=== PATIENT | female | born 1985 | race Caucasian/White ===

== ENCOUNTER 2017-01-24 21:19 | Emergency (ER) | payer BC ==
[2017-01-24 21:41] VITALS: BP 143/85
--- NOTE | 2017-01-24 21:41 | ED Physician Documentation ---
Skin Rash - HISTORIAN Historian: patient - HPI Chief Complaint: Allergic Reaction Onset: days ago (today) Timing: worse Duration: persistent since (this AM) Location: facial, RUE, LUE Quality: itchy Identified Cause?: Yes (poison mike) Where: home Context: Other Exposure: poison mike Further Comments: yes - ROS CONST: no problems - PAST HX Past History: none Other History: none Surgeries/Procedures: No Immunizations: referred to PCP Allergies/Adverse Reactions: Allergies Allergy/AdvReac Type Severity Reaction Status Date / Time No Known Allergies Allergy Verified 01/24/17 21:41 Home Medications: Ambulatory Orders Medication Instructions Recorded Desogestrel-Ethinyl Estradiol 1 each PO DAILY u2 07/09/14 [Reclipsen 28 Day Tablet] - SOCIAL HX Smoking History: non-smoker Alcohol Use: occasionally Drug Use: none - FAMILY HX Family History: none - REVIEWED ASSESSMENTS Nursing Assessment Reviewed: Yes Vitals Reviewed: Yes Skin Rash Physical Exam - EXAM General Appearance: alert, mild distress Skin: warm,dry, erythema (generalized to the face, scattered lesion to the forearm bilat) Location: face, extremities (upper) Character: vesicular, erythematous Symptoms: warmth, tenderness, inflammation Respiratory: no resp distress, chest non-tender, breath sounds normal. No: wheezes, rales, rhonchi CVS: reg. rate & rhythm, heart sounds nml Neuro/Psych: mood/affect nml Discharge Clincal Impression: Contact dermatitis and eczema due to plant Referrals: Zenaida Salazar MD [Primary Care Provider] - 2 Days Additional Instructions: May continue to use calamine lotion. Try some Benadryl to help with the itching , this may cause drowsiness. This will take 10-14 days to resolve. Home Medications: Ambulatory Orders Desogestrel-Ethinyl Estradiol [Reclipsen 28 Day Tablet] 1 each PO DAILY u2 02/12 Condition: Stable Disposition: 01 HOME, SELF-CARE Decision to Admit: NO Date of Decison to Admit: 01/24/17 Decision Time: 21:50
[2017-01-24] MEDS: DEXAMETHASONE SOD PHOS 4 MG/ML VIAL IM ONE (22:03)
[2017-01-24] MEDS: methylPREDNISolone ACETATE 80 MG/ML VIAL IM ONE (22:03)
== END 2017-01-24 22:10 | disposition home or self-care (01) ==
LOC: ED 21:19
DX: L25.9 Unspecified contact dermatitis, unspecified cause (principal)
CPT/HCPCS: J1040; J1100; 96372; 99283